=== PATIENT | male | born 1950 | race Two or more races ===

== ENCOUNTER 2022-07-01 10:16 | Inpatient (IN) | payer MEDICARE ==
[~2022-07-01] VITALS: Ht 170.2 cm; Wt 69.9 kg
[2022-07-01] MEDS ORDERED: FUROSEMIDE 40 MG/4 ML VIAL IV ONE (10:30)
[2022-07-01] MEDS ORDERED: ENALAPRILAT INJ (1.25 MG/ML) 1.25 MG/ML VIAL IV PRN (10:30)
[2022-07-01] MEDS ORDERED: NITROGLYCERIN PACKET 1 GM PACKET TD ONE (10:30)
[2022-07-01] MEDS ORDERED: FUROSEMIDE 40 MG/4 ML VIAL ONE (10:31)
[2022-07-01] MEDS ORDERED: ENALAPRILAT INJ (1.25 MG/ML) 1.25 MG/ML VIAL IV ONE (10:31)
[2022-07-01] MEDS ORDERED: NITROGLYCERIN PACKET 1 GM PACKET ONE (10:32)
[2022-07-01] MEDS ORDERED: GLIM4TAB37 PO (10:40)
[2022-07-01] MEDS ORDERED: ASPI-1169 PO (10:40)
[2022-07-01] MEDS ORDERED: ATOR10TA PO (10:40)
[2022-07-01] MEDS ORDERED: METF-881 PO (10:40)
[2022-07-01] MEDS ORDERED: CARV3.122 PO (10:40)
[2022-07-01] MEDS ORDERED: TICA90TA PO (10:40)
--- NOTE | 2022-07-01 10:43 | NUR ---
RT NOTE ATTEMPTED TO PUT PATIENT ON BIPAP AT ARRIVAL. PT REFUSED. MD AWARE. PLACED PT ON HIGH FLOW 40 L 100%. WILL CONTINUE TO MONITOR FOR ANY CHANGES.
--- NOTE | 2022-07-01 10:45 | NUR ---
BLOOD DRAWN AND SENT TO LAB
--- NOTE | 2022-07-01 10:46 | NUR ---
RESP. TECH AT BEDSIDE AND PATIENT ATTACHED TO HIGH FLOW O2. SATURATING AT 100%
--- NOTE | 2022-07-01 11:00 | NUR ---
[id number] C/O SOB X 2 HOURS ON NON REBREATHER AUTOMOTIVE SERVICES MANAGER. NITRO GIVEN AUTOMOTIVE SERVICES MANAGER. PLACED ON BED, AAOX4, ATTACHED TO MONITOR SATURATING AT 96% ON NON REBREATHING MASK, TACHYPNEIC RR- 35.
--- NOTE | 2022-07-01 11:07 | NUR ---
SWAB FOR COVID19 SENT TO LAB
[2022-07-01 11:11] LABS: BASOPHILS % (AUTO) 0.3 % (0.0-2.0); EOSINOPHILS % (AUTO) 0.6 % (0.0-6.0); HEMATOCRIT 43 % (39-51); HEMOGLOBIN 12.7 g/dL (13.5-17.5); LYMPHOCYTES # (AUTO) 5.7 K/uL (0.8-4.8); LYMPHOCYTES % (AUTO) 42.4 % (20.0-44.0); MEAN CORPUSCULAR HGB CONC 30 g/dl (31.0-36.0); MEAN CORPUSCULAR VOLUME 84 fL (80-96); MONOCYTES # (AUTO) 0.9 K/uL (0.1-1.30); MONOCYTES % (AUTO) 6.6 % (2.0-12.0); NEUTROPHILS # (AUTO) 6.7 K/uL (1.8-8.9); NEUTROPHILS % (AUTO) 50.1 % (43.0-81.0); PLATELET COUNT (AUTO) 264 K/uL (150-450); RED BLOOD CELL COUNT(AUTO) 5.08 MIL/uL (4.5-6.0); WHITE BLOOD COUNT (AUTO) 13.3 K/uL (4.3-11.0)
[2022-07-01 11:18] LABS: ALANINE AMINOTRANSFERASE 17 U/L (12-78); ALBUMIN 3.2 g/dL (3.4-5.0); ALKALINE PHOSPHATASE 67 U/L (46-116); ASPARTATE AMINOTRANSFERASE 23 U/L (15-37); BILIRUBIN,DIRECT 0.1 mg/dL (0.0-0.2); BILIRUBIN,TOTAL 0.3 mg/dL (0.2-1.0); CALCIUM, SERUM 8.5 mg/dL (8.5-10.1); CARBON DIOXIDE 19 mmol/L (21-32); CHLORIDE 104 mmol/L (98-107); CREATININE 1.4 mg/dL (0.6-1.3); POTASSIUM 4.4 mmol/L (3.5-5.1); SODIUM SERUM 137 mmol/L (136-145); TOTAL PROTEIN, SERUM 7.4 g/dL (6.4-8.2); UREA NITROGEN, BLOOD 23 mg/dL (7-18)
[2022-07-01 11:20] LABS: GLUCOSE 359 mg/dL (74-106)
[2022-07-01] MEDS ORDERED: CEFTRIAXONE 1GM BAG (ER ONLY) 1 GM/50 ML PIGGYBACK IV ONE (11:30)
[2022-07-01] MEDS ORDERED: AZITHROMYCIN 500 MG in IV D5W 250 ML IV ONE (11:30)
[2022-07-01] MEDS ORDERED: MAG HYDROX/AL HYDROX/SIMETH 30 ML UDC PO PRN (14:00)
[2022-07-01] MEDS ORDERED: ASPIRIN 325 MG TABLET PO ONE (14:00)
[2022-07-01] MEDS ORDERED: ONDANSETRON HCL/PF 4 MG/2 ML VIAL IVP PRN (14:00)
[2022-07-01] MEDS ORDERED: ZOLPIDEM TARTRATE 5 MG TABLET PO PRN (14:00)
[2022-07-01] MEDS ORDERED: *INSULIN REGULAR(HUMULIN R)HUM 100 UNIT/ML VIAL SQ PRN (14:00)
[2022-07-01] MEDS ORDERED: DEXTROSE 50%-WATER 50 ML DISP.SYRIN IV PRN (14:00)
[2022-07-01] MEDS ORDERED: ACETAMINOPHEN 325 MG TABLET PO PRN (14:00)
[2022-07-01] MEDS ORDERED: MAGNESIUM HYDROXIDE 30 ML UDC PO PRN (14:00)
[2022-07-01] MEDS ORDERED: Z GUARD REMEDY 4 OZ OINT TP PRN (14:00)
[2022-07-01] MEDS ORDERED: ASPIRIN 325 MG TABLET ONE (14:20)
[2022-07-01] MEDS ORDERED: ENOXAPARIN SODIUM 80 MG/0.8 ML DISP.SYRIN SQ SCH (16:00)
[2022-07-01] MEDS ORDERED: ENOXAPARIN SODIUM 80 MG/0.8 ML DISP.SYRIN SQ ONE (16:03)
[2022-07-01] MEDS: TICAGRELOR 90 MG TABLET PO SCH (17:00)
--- NOTE | 2022-07-01 17:04 | NUR ---
ROOM ASSIGNED, 259. ADMITTING AWARE.
--- NOTE | 2022-07-01 17:26 | NUR ---
REPORT GIVEN TO CAMRYN RN ROOM 259 FOR JULIET
[2022-07-01 18:00] VITALS: BP 135/92
--- NOTE | 2022-07-01 18:00 | NUR ---
ICU/RN PT ADMITED FROM ER .ON HI-FLOW FIO2-100%,SAT O2-100%.V/S STABLE,AFEBRILE.NO PAIN REPORTED AT THIS TIME.IV -HL.PT IS AWAKE,ALERT.ORIENTED. USE URINAL .WITH CLEAR YELLOW URINE. DUE MEDS ARE GIVEN ORDERED. FAMILY AT BED SIDE.TAKE ALL BELONGING HOME. DINNER ORDERED. CONTINUE MONITORING
[2022-07-01] MEDS: BLOOD SUGAR DIAGNOSTIC 1 EACH STRIP VI SCH ×2 (18:06→21:19)
[2022-07-01 18:43] VITALS: BP 135/92
[2022-07-01 20:00] VITALS: BP 91/64
[2022-07-01 21:01] VITALS: BP 131/79
[2022-07-01] MEDS: FUROSEMIDE 40 MG/4 ML VIAL IV SCH (21:19)
[2022-07-01] MEDS: NITROGLYCERIN 30 GM TUBE TD SCH (21:19)
[2022-07-01 22:00] VITALS: BP 135/86
[2022-07-01 23:00] VITALS: BP 142/92
--- NOTE | 2022-07-01 23:40 | NUR ---
ICU/RN: BY SWITCHED TO 4L NASAL CANNULA BY RT GARCIA. PT SATURATING WELL. NO S/S OF DISTRESS.
[2022-07-02] VITALS (14 sets, daily range): BP systolic 92–150; BP diastolic 68–88
[2022-07-02 05:07] LABS: BASOPHILS % (AUTO) 0.3 % (0.0-2.0); EOSINOPHILS % (AUTO) 0.3 % (0.0-6.0); HEMATOCRIT 39 % (39-51); HEMOGLOBIN 12.1 g/dL (13.5-17.5); LYMPHOCYTES # (AUTO) 2.1 K/uL (0.8-4.8); LYMPHOCYTES % (AUTO) 19.6 % (20.0-44.0); MEAN CORPUSCULAR HGB CONC 31 g/dl (31.0-36.0); MEAN CORPUSCULAR VOLUME 82 fL (80-96); MONOCYTES # (AUTO) 0.8 K/uL (0.1-1.30); MONOCYTES % (AUTO) 7.7 % (2.0-12.0); NEUTROPHILS # (AUTO) 7.8 K/uL (1.8-8.9); NEUTROPHILS % (AUTO) 72.1 % (43.0-81.0); PLATELET COUNT (AUTO) 233 K/uL (150-450); RED BLOOD CELL COUNT(AUTO) 4.74 MIL/uL (4.5-6.0); WHITE BLOOD COUNT (AUTO) 10.8 K/uL (4.3-11.0)
[2022-07-02 05:25] LABS: CALCIUM, SERUM 8.5 mg/dL (8.5-10.1); CREATININE 1.2 mg/dL (0.6-1.3); MAGNESIUM 2.4 mg/dL (1.8-2.4); PHOSPHORUS 3.5 mg/dL (2.5-4.9); POTASSIUM 4.1 mmol/L (3.5-5.1)
[2022-07-02] MEDS: NITROGLYCERIN 30 GM TUBE TD SCH ×2 (05:59→13:28)
--- NOTE | 2022-07-02 07:05 | NUR ---
SECURITY INSTALLER OPENING NOTE: RECEIVED PT. IN CHAIR, AWAKE, AOX4, ABLE TO VERBALIZE NEEDS. NO COMPLAINTS OF PAIN AT THIS TIME. ON O2 VIA NC AT 4 L/MIN. NO S/S OF RESPIRATORY DISTRESS. POTATO CHIP PACKAGING MACHINE OPERATOR READS NSR WITH HR OF 72 BPM AT THIS TIME. USES URINAL AT BEDSIDE, VOIDING CLEAR YELLOW URINE. SKIN INTACT. IV ACCESS ON L AC #20G, PATENT AND SALINE LOCKED. IV SITE DRESSING C/D/I WITH NO S/S OF INFILTRATION. SAFETY MEASURES IN PLACE: BED IN LOWEST AND LOCKED POSITION, HOB ELEVATED AT 30 DEGREES, CALL LIGHT WITHIN REACH, SIDE RAILS UP X2. WILL ENCOURAGE FREQUENT REPOSITIONING IN BED AND IN CHAIR AT LEAST Q2H. WILL CONTINUE TO MONITOR PT. FOR ANY CHANGES.
[2022-07-02] MEDS: BLOOD SUGAR DIAGNOSTIC 1 EACH STRIP VI SCH ×3 (07:32→16:34)
[2022-07-02] MEDS: INSULIN REGULAR, HUMAN 100 UNIT/ML 3 ML VIAL SQ PRN ×2 (07:34→17:39)
[2022-07-02] MEDS ORDERED: ASPIRIN 81 MG TAB.CHEW PO SCH (09:00)
[2022-07-02] MEDS ORDERED: CLOPIDOGREL BISULFATE 75 MG TABLET PO SCH (09:00)
[2022-07-02] MEDS: TICAGRELOR 90 MG TABLET PO SCH ×3 (09:00→16:33)
[2022-07-02] MEDS ORDERED: ENOXAPARIN SODIUM 60 MG/0.6 ML DISP.SYRIN SQ SCH (09:00)
[2022-07-02] MEDS: FUROSEMIDE 40 MG/4 ML VIAL IV SCH (09:34)
--- NOTE | 2022-07-02 09:51 | NUR ---
CORRECTIONAL GUARD NOTE: BRILINTA 90 MG SCHEDULED AT 0900 REFUSED BY PATIENT AFTER SCANNING THE MEDICATION. HE SAID HE ONLY TAKES PLAVIX AT HOME BECAUSE BRILINTA MAKES HIM ANXIOUS.
--- NOTE | 2022-07-02 10:45 | NUR ---
DESOLDERERFOOD AND NUTRITION SUPERVISOR NOTE: TRANSFERRED PT. TO TELE ROOM # 117-1. REPORT GIVEN TO CLINIC MANAGERBELLE GRACIA AT BEDSIDE. PT. REMAINS IN BED, AWAKE, AOX4, ABLE TO VERBALIZE NEEDS. NO COMPLAINTS OF PAIN AT THIS TIME. ON O2 VIA NC AT 4 L/MIN. NO S/S OF RESPIRATORY DISTRESS. BRASS BUFFER READS NSR WITH HR OF 82 BPM AT THIS TIME. USES URINAL AT BEDSIDE, VOIDED 350 ML CLEAR YELLOW URINE. SKIN INTACT. IV ACCESS ON L AC #20G, PATENT AND SALINE LOCKED. IV SITE DRESSING C/D/I WITH NO S/S OF INFILTRATION. SAFETY MEASURES MAINTAINED: BED IN LOWEST AND LOCKED POSITION, HOB ELEVATED AT 30 DEGREES, CALL LIGHT WITHIN REACH, SIDE RAILS UP X2. ENCOURAGED FREQUENT REPOSITIONING IN BED AND IN CHAIR AT LEAST Q2H. PT. CHART, MEDICATIONS AND BELONGINGS HANDED OVER TO CLINIC MANAGERBELLE GRACIA AT BEDSIDE. ENDORSED CONTINUITY OF CARE.
[2022-07-02] MEDS ORDERED: CEFTRIAXONE 1 G in IV D5W 50 ML IV SCH (11:00)
--- NOTE | 2022-07-02 12:30 | NUR ---
RN NOTE INSULIN REFUSED BY PT.
--- NOTE | 2022-07-02 18:24 | NUR ---
DR. BELLA CLEARED PT. TO GO HOME,Sergo ROGER NOTIFIED HE WILL PUT DISCHARGE ORDER SOON,PT. MADE AWARE.
[2022-07-02] MEDS ORDERED: LOSARTAN POTASSIUM 25 MG TABLET PO SCH (20:00)
[2022-07-02] MEDS ORDERED: LOSA25TA27 PO (20:10)
[2022-07-02] MEDS ORDERED: FURO-144 PO (20:10)
[2022-07-02] MEDS ORDERED: EMPA10TA PO (20:10)
--- NOTE | 2022-07-02 20:45 | NUR ---
RN NOTE PT D/C COPIES OF ALL DOCUMENTATION PROVIDED. ALL BELONGINGS ACCOUNTED FOR. PT IN NO DISTRESS AT THIS TIME.
== END 2022-07-02 21:43 | disposition home or self-care (01) | DRG 280 ==
LOC: ER 10:38 → TRANSITION 17:01 → ICU 17:04 → TELE1 07-02 10:46
PROVIDERS: ADMIT Internal Medicine; ATTEND Nurse Practitioner Acute Care
DX: I13.0 Hypertensive heart and chronic kidney disease with heart failure and stage 1 through stage 4 chronic kidney disease, or unspecified chronic kidney disease (principal); I21.A1 Myocardial infarction type 2; I50.23 Acute on chronic systolic (congestive) heart failure; N17.0 Acute kidney failure with tubular necrosis; J96.01 Acute respiratory failure with hypoxia; I16.0 Hypertensive urgency; I25.10 Atherosclerotic heart disease of native coronary artery without angina pectoris; Z95.5 Presence of coronary angioplasty implant and graft; E11.9 Type 2 diabetes mellitus without complications; Z88.8 Allergy status to other drugs, medicaments and biological substances; Z79.82 Long term (current) use of aspirin; Z79.899 Other long term (current) drug therapy; Z79.84 Long term (current) use of oral hypoglycemic drugs; E78.5 Hyperlipidemia, unspecified; E11.22 Type 2 diabetes mellitus with diabetic chronic kidney disease; N18.9 Chronic kidney disease, unspecified; Z79.02 Long term (current) use of antithrombotics/antiplatelets; Z95.1 Presence of aortocoronary bypass graft
CPT/HCPCS: 36415; 71045-TC; 80048-TC; 80076-TC; 82962-TC; 83605-TC; 83735-TC; 83880; 84100-TC; 84484-TC; 85025-TC; 85730-TC; 87040-TC; 87081-TC; 93307-TC; C9803; G0378; J0456; J0696; J1650; J1815; J1940; J3490; J7050; J7060